=== PATIENT | male | born 1955 | race Two or more races ===

== ENCOUNTER 2017-01-18 19:59 | Inpatient (IN) | payer OTHER ==
[2017-01-18 20:25] VITALS: BMI 23.9
--- NOTE | 2017-01-18 20:50 | HP ---
CIWA Score - CIWA Score Nausea/Vomitin-Mild Nausea/No Vomiting Muscle Tremors: 4-Moderate,w/Arms Extend Anxiety: 4-Mod. Anxious/Guarded Agitation: 4-Moderately Restless Paroxysmal Sweats: 1-Minimal Palms Moist Orientation: 1-Uncertain about Date Tacttile Disturbances: 1-Very Mild Itch/Numbness Auditory Disturbances: 0-None Visual Disturbances: 0-None Headache: 2-Mild CIWA-Ar Total Score: 18 Admission ROS BHS - HPI Chief Complaint: C/O ALCOHOLISM. SEEKING DETOX TXMENT. Allergies/Adverse Reactions: Allergies Allergy/AdvReac Type Severity Reaction Status Date / Time No Known Allergies Allergy Verified 01/18/17 20:45 History of Present Illness: 61 Y.O. MALE WITH ALCOHOLISM ADMITTED FOR DETOX. CLIENT DENIES RECENT DETOX. SELF REFERRED. REPORTS LONGEST CLEAN TIME 10 YEARS. Exam Limitations: No Limitations - Ebola screening Have you traveled outside of the country in the last 21 days: No (N) Have you had contact with anyone from an Ebola affected area: No Have you been sick,other than usual withdrawal symptoms: No Do you have a fever: No - Review of Systems Constitutional: Chills, Loss of Appetite, Unintentional Wgt. Loss EENT: reports: No Symptoms Reported Respiratory: reports: No Symptoms reported Cardiac: reports: No Symptoms Reported GI: reports: Nausea, Poor Appetite, Poor Fluid Intake : reports: No Symptoms Reported Musculoskeletal: reports: Back Pain (CHRONIC) Integumentary: reports: No Symptoms Reported Neuro: reports: Tremors (ETOH RELATED) Endocrine: reports: No Symptoms Reported Hematology: reports: No Symptoms Reported Psychiatric: reports: Anxious, Depressed Other Systems: Reviewed and Negative Patient History - Patient Medical History Hx Anemia: No Hx Asthma: No Hx Chronic Obstructive Pulmonary Disease (COPD): No Hx Cancer: No Hx Cardiac Disorders: No Hx Congestive Heart Failure: No Hx Hypertension: Yes Hx Hypercholesterolemia: No Hx Pacemaker: Yes HX Cerebrovascular Accident: No Hx Seizures: No Hx Dementia: No Hx Diabetes: Yes (BORDERLINE) Hx Gastrointestinal Disorders: No Hx Liver Disease: No Hx Genitourinary Disorders: No Hx Sexually Transmitted Disorders: No Hx Renal Disease (ESRD): No Hx Thyroid Disease: No Hx Human Immunodeficiency Virus (HIV): No Hx Hepatitis C: No Hx Depression: Yes Hx Suicide Attempt: No Hx Bipolar Disorder: No Hx Schizophrenia: No Other Medical History: DENIES - Patient Surgical History Past Surgical History: No - PPD History Previous Implant?: Yes Documented Results: Negative w/o proof Implanted On Prior R Admission?: No PPD to be Administered?: Yes - Smoking Cessation Smoking history: Current every day smoker Have you smoked in the past 12 months: Yes Aproximately how many cigarettes per day: 10 Cigars Per Day: 0 Hx Chewing Tobacco Use: No Initiated information on smoking cessation: Yes 'Breaking Loose' booklet given: 01/18/17 - Substance & Tx. History Hx Alcohol Use: Yes Hx Substance Use: Yes Substance Use Type: Alcohol Hx Substance Use Treatment: Yes ([facility]) - Substances Abused VODKA Route: Oral Frequency: Daily Amount used: 1/2 PINT Age of first use: 20 Date of Last Use: 01/18/17 Family Disease History - Family Disease History Family Disease History: Other: Father (ALCOHOLISM) Admission Physical Exam S - Vital Signs Vital Signs: Vital Signs - 24 hr 01/18/17 20:20 Temperature 96.8 F L Pulse Rate 118 H Respiratory 20 Rate Blood Pressure 136/87 - Physical General Appearance: Yes: Appropriately Dressed, Intoxicated, Tremorous, Anxious HEENTM: Yes: EOMI, Normocephalic, Pharynx Normal Respiratory: Yes: Chest Non-Tender, Lungs Clear, Normal Breath Sounds, No Respiratory Distress, No Accessory Muscle Use Neck: Yes: No masses,lesions,Nodules, Supple, Trachea in good position Breast: Yes: Breast Exam Deferred Cardiology: Yes: Regular Rhythm, Regular Rate, S1, S2 Abdominal: Yes: Normal Bowel Sounds, Non Tender, Soft Genitourinary: Yes: Within Normal Limits Back: Yes: Normal Inspection Musculoskeletal: Yes: full range of Motion, Gait Steady, Back pain (C/O) Extremities: Yes: Normal Capillary Refill, Normal Range of Motion, Non-Tender, Tremors Neurological: Yes: Alert, Motor Strength 5/5 Integumentary: Yes: Dry, Warm, Other (FLUSHED) Lymphatic: Yes: Within Normal Limits - Diagnostic (1) HTN (hypertension) Current Visit: Yes Status: Chronic Qualifiers: Hypertension type: essential hypertension Qualified Code(s): I10 - Essential (primary) hypertension (2) HLD (hyperlipidemia) Current Visit: Yes Status: Chronic Qualifiers: Hyperlipidemia type: unspecified Qualified Code(s): E78.5 - Hyperlipidemia, unspecified (3) Nicotine dependence Current Visit: Yes Status: Chronic Qualifiers: Nicotine product type: cigarettes Substance use status: uncomplicated Qualified Code(s): F17.210 - Nicotine dependence, cigarettes, uncomplicated (4) Alcohol dependence with uncomplicated withdrawal Current Visit: Yes Status: Chronic Cleared for Admission [facility] - Detox or Rehab [facility] Level of Care: Medically Managed Detox Regimen/Protocol: Librium S Breath Alcohol Content Breath Alcohol Content: 0.291 Urine Drug Screen - Results Drug Screen Negative: No Urine Drug Screen Results: MET-Methamphetamine
[2017-01-18] MEDS ORDERED: MENTHOL/PHENOL 1 EACH UD MM PRN (21:02)
[2017-01-18] MEDS ORDERED: MAGNESIUM HYDROX 2400MG/30ML ORAL SUSPENSION 30 ML CUP PO PRN (21:02)
[2017-01-18] MEDS ORDERED: P-EPHED 60MG/TRIPROLIDI 2.5MG TABLET PO PRN (21:02)
[2017-01-18] MEDS ORDERED: MAGNESIUM CITRATE 300 ML BOTTLE PO PRN (21:02)
[2017-01-18] MEDS ORDERED: MAG HYDROX/AL HYDROX/SIMETH 30 ML UNIT-DOSE CUP PO PRN (21:02)
[2017-01-18] MEDS ORDERED: NICOTINE POLACRILEX 2 MG GUM BUC PRN (21:02)
[2017-01-18] MEDS ORDERED: hydrOXYzine PAMOATE 50 MG CAPSULE (FP) PO PRN (21:02)
[2017-01-18] MEDS ORDERED: guaiFENesin/D-METHORPHAN HB 10 ML UNIT-DOSE CUPS PO PRN (21:02)
[2017-01-18] MEDS: METOPROLOL TARTRATE 25 MG TABLET (FP) PO SCH (23:05)
[2017-01-18] MEDS: THIAMINE HCL 100 MG TABLET (FP) PO SCH (23:06)
[2017-01-18] MEDS: chlordiazePOXIDE HCL 25 MG CAPSULE PO SCH (23:06)
[2017-01-18] MEDS: NICOTINE 14 MG/24 HOURS TOPICAL PATCH TD SCH (23:07)
[2017-01-19] MEDS: chlordiazePOXIDE HCL 25 MG CAPSULE PO PRN ×2 (03:12→13:53)
[2017-01-19] MEDS: chlordiazePOXIDE HCL 25 MG CAPSULE PO SCH ×4 (05:37→22:26)
[2017-01-19 10:16] LABS: MCH 30.9 pg (25.7-33.7); MCHC 33.9 g/dl (32.0-35.9); MEAN CELL VOLUME 91.2 fl (80-96); MEAN PLT VOLUME 7.6 fl (7.5-11.1); PLATELET COUNT 124 K/MM3 (134-434); RDW 15.8 % (11.9-15.9); WHITE BLOOD COUNT 3.8 K/mm3 (4.0-10.0)
[2017-01-19] MEDS: PRENATAL VITAMINS W/ FOLIC ACID TABLET (FP) PO SCH (10:17)
[2017-01-19] MEDS: METOPROLOL TARTRATE 25 MG TABLET (FP) PO SCH (10:17)
[2017-01-19 10:19] LABS: URINE APPEARANCE CLEAR; URINE BILIRUBIN NEGATIVE (NEGATIVE); URINE BLOOD NEGATIVE (NEGATIVE); URINE COLOR LTYELLOW; URINE GLUCOSE (UA) NEGATIVE (NEGATIVE); URINE KETONE NEGATIVE (NEGATIVE); URINE LEUK ESTERASE NEGATIVE (NEGATIVE); URINE NITRITE NEGATIVE (NEGATIVE); URINE PROTEIN NEGATIVE (NEGATIVE); URINE UROBILINOGEN NEGATIVE E.U./dl (0.2-1.0)
[2017-01-19] MEDS: NICOTINE 14 MG/24 HOURS TOPICAL PATCH TD SCH (10:19)
[2017-01-19 10:40] LABS: ALBUMIN 3.8 g/dl (3.4-5.0); ALK PHOS 73 U/L (45-117); ANION GAP 15 (8-16); BILIRUBIN,TOTAL 1.3 mg/dL (0.2-1.0); CALCIUM 9.1 mg/dL (8.5-10.1); CO2 28 mmol/L (21-32); CREATININE 0.8 mg/dL (0.7-1.3); GLUCOSE,RANDOM 102 mg/dL (74-106); SGOT/AST 152 U/L (15-37); SGPT/ALT 97 U/L (12-78); TOT PROT 7.1 g/dl (6.4-8.2)
[2017-01-19 10:59] LABS: HIV 1 & 2 AB NEGATIVE; HIV 1 AGp24 NEGATIVE
--- NOTE | 2017-01-19 11:14 | CONSULT ---
[facility] Psychiatric Consult - Data Date of interview: 01/19/17 Admission source: [facility] Identifying data: This is 61 years old male with no psychiatric hospitalization history intoxiocated with: ASlcohol and Nicoptine Substance Abuse History: - Smoking Cessation. Smoking history: Current every day smoker. Have you smoked in the past 12 months: Yes. Aproximately how many cigarettes per day: 10. Cigars Per Day: 0. Hx Chewing Tobacco Use: No. Initiated information on smoking cessation: Yes. 'Breaking Loose' booklet given : 01/18/17. - Substance & Tx. History. Hx Alcohol Use: Yes. Hx Substance Use : Yes. Substance Use Type: Alcohol. Hx Substance Use Treatment: Yes ([facility] - Substances Abused. VODKA. Route: Oral. Frequency: Daily. Amount used: 1 /2 PINT. Age of first use: 20. Date of Last Use: 01/18/17 Medical History: Hyperlip[idemia, HTN Psychiatric History: Patient reports history of anxiety, reports no medications taking prior to admission Physical/Sexual Abuse/Trauma History: Denies Additional Comment: Observation. Detox Unit Care Protocol Mental Status Exam - Mental Status Exam Alert and Oriented to: Person Cognitive Function: Fair Patient Appearance: Unkempt Mood: Sad Affect: Flat Patient Behavior: Sedated Speech Pattern: Delayed Voice Loudness: Mildly Soft/Quiet Thought Process: Circumstantial Thought Disorder: Being Controlled Hallucinations: Denies Suicidal Ideation: Denies Homicidal Ideation: Denies Insight/Judgement: Fair Sleep: Difficulty falling asleep Appetite: Weight loss Muscle strength/Tone: Normal Gait/Station: Shuffling Additional Comments: Observation. Detox Unit Care Protocol Psychiatric Findings - Problem List ([place] 1, 2,3) (1) Alcohol dependence with uncomplicated withdrawal Current Visit: Yes Status: Chronic (2) Nicotine dependence Current Visit: Yes Status: Chronic Qualifiers: Nicotine product type: cigarettes Substance use status: uncomplicated Qualified Code(s): F17.210 - Nicotine dependence, cigarettes, uncomplicated (3) Drug-induced mood disorder Current Visit: Yes Status: Suspected - Initial Treatment Plan Initial Treatment Plan: Observation. Detox Unit Care Protocol
--- NOTE | 2017-01-19 13:39 | PN ---
S CIWA - CIWA Score Nausea/Vomitin Muscle Tremors: 4-Moderate,w/Arms Extend Anxiety: 4-Mod. Anxious/Guarded Agitation: 3 Paroxysmal Sweats: 3 Orientation: 0-Oriented Tacttile Disturbances: 1-Very Mild Itch/Numbness Auditory Disturbances: 0-None Visual Disturbances: 0-None Headache: 0-None Present CIWA-Ar Total Score: 17 BHS Progress Note (SOAP) Subjective: Sweating,interrupted sleep,restless,tremors,anxiety Objective: 01/19/17 13:38 Vital Signs - 8 hr 01/19/17 01/19/17 06:24 09:46 Temperature 98.7 F 97.6 F Pulse Rate 70 69 Respiratory 18 18 Rate Blood Pressure 135/91 153/102 Laboratory Tests 01/19/17 01/19/17 01/19/17 07:00 07:00 07:00 WBC 3.8 L RBC 4.76 Hgb 14.7 Hct 43.4 MCV 91.2 MCHC 33.9 RDW 15.8 Plt Count 124 L MPV 7.6 Sodium 142 Potassium 3.5 Chloride 99 Carbon Dioxide 28 Anion Gap 15 BUN 3 L Creatinine 0.8 Creat Clearance w eGFR > 60 Random Glucose 102 Calcium 9.1 Total Bilirubin 1.3 H AST 152 H ALT 97 H Alkaline Phosphatase 73 Total Protein 7.1 Albumin 3.8 Urine Color Urine Appearance Urine pH Urine Protein Urine Glucose (UA) Urine Ketones Urine Blood Urine Nitrite Urine Bilirubin Urine Urobilinogen Ur Leukocyte Esterase RPR Titer Nonreactive HIV 1&2 Antibody Screen HIV P24 Antigen 01/19/17 01/19/17 07:00 08:00 WBC RBC Hgb Hct MCV MCHC RDW Plt Count MPV Sodium Potassium Chloride Carbon Dioxide Anion Gap BUN Creatinine Creat Clearance w eGFR Random Glucose Calcium Total Bilirubin AST ALT Alkaline Phosphatase Total Protein Albumin Urine Color Ltyellow Urine Appearance Clear Urine pH 7.0 Urine Protein Negative Urine Glucose (UA) Negative Urine Ketones Negative Urine Blood Negative Urine Nitrite Negative Urine Bilirubin Negative Urine Urobilinogen Negative Ur Leukocyte Esterase Negative RPR Titer HIV 1&2 Antibody Screen Negative HIV P24 Antigen Negative labs noted Assessment: 01/19/17 13:39 Withdrawal sx. Plan: Continue detox
[2017-01-19] MEDS: amLODIPine BESYLATE 5 MG TABLET (FP) PO SCH ×2 (13:51→22:26)
--- NOTE | 2017-01-19 14:23 | EKG ---
Test Reason : Blood Pressure : / mmHG Vent. Rate : 096 BPM Atrial Rate : 096 BPM P-R Int : 186 ms QRS Dur : 100 ms QT Int : 354 ms P-R-T Axes : 047 010 021 degrees QTc Int : 447 ms NORMAL SINUS RHYTHM POSSIBLE LEFT ATRIAL ENLARGEMENT POSSIBLE ANTERIOR INFARCT , AGE UNDETERMINED ABNORMAL ECG NO PREVIOUS ECGS AVAILABLE Confirmed by MIRIAM KNIGHT, YANY ([id number]) on 01/19/2017 2:23:00 PM Referred By: Justice Correa Confirmed By:YANY PINEDA MD
--- NOTE | 2017-01-19 14:23 | EKG ---
Test Reason : Blood Pressure : / mmHG Vent. Rate : 061 BPM Atrial Rate : 061 BPM P-R Int : 184 ms QRS Dur : 108 ms QT Int : 424 ms P-R-T Axes : 044 014 019 degrees QTc Int : 426 ms NORMAL SINUS RHYTHM INCOMPLETE LEFT BUNDLE BRANCH BLOCK BORDERLINE ECG WHEN COMPARED WITH ECG OF 18-JAN-2017 20:54, VENT. RATE HAS DECREASED BY 35 BPM T WAVE VARIATION Confirmed by MIRIAM KNIGHT, YANY ([id number]) on 01/19/2017 2:22:48 PM Referred By: Justice Correa Confirmed By:YANY PINEDA MD
[2017-01-19] MEDS: THIAMINE HCL 100 MG TABLET (FP) PO SCH (22:26)
[2017-01-20] MEDS: chlordiazePOXIDE HCL 25 MG CAPSULE PO SCH ×3 (05:05→17:02)
[2017-01-20] MEDS: LOPERAMIDE HCL 2 MG CAPSULE PO PRN ×2 (10:09→17:02)
[2017-01-20] MEDS: PRENATAL VITAMINS W/ FOLIC ACID TABLET (FP) PO SCH (10:09)
[2017-01-20] MEDS: METOPROLOL TARTRATE 25 MG TABLET (FP) PO SCH (10:09)
[2017-01-20] MEDS: amLODIPine BESYLATE 5 MG TABLET (FP) PO SCH ×2 (10:09→22:06)
[2017-01-20] MEDS: NICOTINE 14 MG/24 HOURS TOPICAL PATCH TD SCH (10:12)
--- NOTE | 2017-01-20 14:54 | PN ---
S CIWA - CIWA Score Nausea/Vomitin-No Nausea/No Vomiting Muscle Tremors: 4-Moderate,w/Arms Extend Anxiety: 4-Mod. Anxious/Guarded Agitation: 3 Paroxysmal Sweats: 3 Orientation: 0-Oriented Tacttile Disturbances: 0-None Auditory Disturbances: 0-None Visual Disturbances: 0-None Headache: 0-None Present CIWA-Ar Total Score: 14 BHS Progress Note (SOAP) Subjective: Anxiety,tremors,sweating,interrupted sleep,restless Objective: 01/20/17 14:52 Vital Signs - 8 hr 01/20/17 01/20/17 09:16 13:09 Temperature 97.9 F 97.6 F Pulse Rate 103 H 75 Respiratory 20 18 Rate Blood Pressure 105/82 112/76 Laboratory Tests 01/18/17 01/19/17 01/19/17 07:00 07:00 07:00 WBC 3.8 L RBC 4.76 Hgb 14.7 Hct 43.4 MCV 91.2 MCHC 33.9 RDW 15.8 Plt Count 124 L MPV 7.6 Sodium 142 Potassium 3.5 Chloride 99 Carbon Dioxide 28 Anion Gap 15 BUN 3 L Creatinine 0.8 Creat Clearance w eGFR > 60 Random Glucose 102 Calcium 9.1 Total Bilirubin 1.3 H AST 152 H ALT 97 H Alkaline Phosphatase 73 Total Protein 7.1 Albumin 3.8 Urine Color Urine Appearance Urine pH Ur Specific [place] Urine Protein Urine Glucose (UA) Urine Ketones Urine Blood Urine Nitrite Urine Bilirubin Urine Urobilinogen Ur Leukocyte Esterase RPR Titer Hepatitis C Antibody <0.1 HIV 1&2 Antibody Screen HIV P24 Antigen 01/19/17 01/19/17 01/19/17 07:00 07:00 08:00 WBC RBC Hgb Hct MCV MCHC RDW Plt Count MPV Sodium Potassium Chloride Carbon Dioxide Anion Gap BUN Creatinine Creat Clearance w eGFR Random Glucose Calcium Total Bilirubin AST ALT Alkaline Phosphatase Total Protein Albumin Urine Color Ltyellow Urine Appearance Clear Urine pH 7.0 Ur Specific [place] 1.015 Urine Protein Negative Urine Glucose (UA) Negative Urine Ketones Negative Urine Blood Negative Urine Nitrite Negative Urine Bilirubin Negative Urine Urobilinogen Negative Ur Leukocyte Esterase Negative RPR Titer Nonreactive Hepatitis C Antibody HIV 1&2 Antibody Screen Negative HIV P24 Antigen Negative labs noted Assessment: 01/20/17 14:53 withdrawal sx. Plan: continue detox
[2017-01-20] MEDS: diphenhydrAMINE HCL 50 MG CAPSULE PO PRN (22:06)
[2017-01-20] MEDS: chlordiazePOXIDE 5 MG CAPSULE PO SCH (22:06)
[2017-01-20] MEDS: THIAMINE HCL 100 MG TABLET (FP) PO SCH (22:06)
[2017-01-21] MEDS: chlordiazePOXIDE 5 MG CAPSULE PO SCH ×3 (05:38→16:55)
[2017-01-21] MEDS: ACETAMINOPHEN 325 MG TABLET (FP) PO PRN (05:40)
[2017-01-21] MEDS: METOPROLOL TARTRATE 25 MG TABLET (FP) PO SCH (10:03)
[2017-01-21] MEDS: amLODIPine BESYLATE 5 MG TABLET (FP) PO SCH ×2 (10:04→22:06)
[2017-01-21] MEDS: PRENATAL VITAMINS W/ FOLIC ACID TABLET (FP) PO SCH (10:04)
[2017-01-21] MEDS: NICOTINE 14 MG/24 HOURS TOPICAL PATCH TD SCH (10:06)
--- NOTE | 2017-01-21 11:31 | PN ---
BHS Progress Note (SOAP) Subjective: Tremors only Detox Symptom reported by patient today. Objective: PT. A & O X 3, OBSERVED AMBULATING ON UNIT. NO ACUTE DISTRESS. PT. DENIES CHEST PAIN. 01/21/17 11:29 Vital Signs Temperature 97.0 F L 01/21/17 09:34 Pulse Rate 70 01/21/17 09:34 Respiratory Rate 18 01/21/17 09:34 Blood Pressure 111/80 01/21/17 09:34 O2 Sat by Pulse Oximetry (%) Laboratory Tests 01/18/17 01/19/17 01/19/17 07:00 07:00 07:00 WBC 3.8 L RBC 4.76 Hgb 14.7 Hct 43.4 MCV 91.2 MCHC 33.9 RDW 15.8 Plt Count 124 L MPV 7.6 Sodium 142 Potassium 3.5 Chloride 99 Carbon Dioxide 28 Anion Gap 15 BUN 3 L Creatinine 0.8 Creat Clearance w eGFR > 60 Random Glucose 102 Calcium 9.1 Total Bilirubin 1.3 H AST 152 H ALT 97 H Alkaline Phosphatase 73 Total Protein 7.1 Albumin 3.8 Urine Color Urine Appearance Urine pH Ur Specific [place] Urine Protein Urine Glucose (UA) Urine Ketones Urine Blood Urine Nitrite Urine Bilirubin Urine Urobilinogen Ur Leukocyte Esterase RPR Titer Hepatitis C Antibody <0.1 HIV 1&2 Antibody Screen HIV P24 Antigen 01/19/17 01/19/17 01/19/17 07:00 07:00 08:00 WBC RBC Hgb Hct MCV MCHC RDW Plt Count MPV Sodium Potassium Chloride Carbon Dioxide Anion Gap BUN Creatinine Creat Clearance w eGFR Random Glucose Calcium Total Bilirubin AST ALT Alkaline Phosphatase Total Protein Albumin Urine Color Ltyellow Urine Appearance Clear Urine pH 7.0 Ur Specific [place] 1.015 Urine Protein Negative Urine Glucose (UA) Negative Urine Ketones Negative Urine Blood Negative Urine Nitrite Negative Urine Bilirubin Negative Urine Urobilinogen Negative Ur Leukocyte Esterase Negative RPR Titer Nonreactive Hepatitis C Antibody HIV 1&2 Antibody Screen Negative HIV P24 Antigen Negative LABS NOTED. Assessment: 01/21/17 11:29 WITHDRAWAL SYMPTOMS. Plan: CONTINUE DETOX. ADVISED PATIENT TO FOLLOW-UP WITH RADIO PROGRAM CHECKER AFTER DISCHARGE FROM DETOX FOR GENERAL MEDICAL ASSESSMENT AND FOR LOW ADMISSION PLATELET LEVELS AND ELEVATED LIVER ENZYMES (AST AND ALT).
[2017-01-21] MEDS: THIAMINE HCL 100 MG TABLET (FP) PO SCH (22:06)
[2017-01-21] MEDS: diphenhydrAMINE HCL 50 MG CAPSULE PO PRN (22:06)
[2017-01-21] MEDS: chlordiazePOXIDE HCL 10 MG CAPSULE PO SCH (22:06)
[2017-01-22] MEDS: chlordiazePOXIDE HCL 10 MG CAPSULE PO SCH (05:23)
[2017-01-22] MEDS: ACETAMINOPHEN 325 MG TABLET (FP) PO PRN (05:24)
[2017-01-22 06:32] VITALS: BP 137/99; PULSE 77; TEMP 97.1
--- NOTE | 2017-01-22 12:57 | DS ---
[facility] Detox Discharge Summary Admission Date: 01/18/17 Discharge Date: 01/22/17 - History Present History: Alcohol Dependence Additional Comments: ADVISED PATIENT TO FOLLOW-UP WITH HAMMERER HELPER AFTER DISCHARGE FROM DETOX FOR GENERAL MEDICAL ASSESSMENT. Pertinent Past History: HTN, Hyperlipidemia, Borderline DM, Depression, Pacemaker. - Physical Exam Results Vital Signs: Vital Signs Temperature 97.1 F L 01/22/17 06:32 Pulse Rate 77 01/22/17 06:32 Respiratory Rate 18 01/22/17 06:32 Blood Pressure 137/99 01/22/17 06:32 O2 Sat by Pulse Oximetry (%) Pertinent Admission Physical Exam Findings: WITHDRAWAL SYMPTOMS. Laboratory Tests 01/18/17 01/19/17 01/19/17 07:00 07:00 07:00 WBC 3.8 L RBC 4.76 Hgb 14.7 Hct 43.4 MCV 91.2 MCHC 33.9 RDW 15.8 Plt Count 124 L MPV 7.6 Sodium 142 Potassium 3.5 Chloride 99 Carbon Dioxide 28 Anion Gap 15 BUN 3 L Creatinine 0.8 Creat Clearance w eGFR > 60 Random Glucose 102 Calcium 9.1 Total Bilirubin 1.3 H AST 152 H ALT 97 H Alkaline Phosphatase 73 Total Protein 7.1 Albumin 3.8 Urine Color Urine Appearance Urine pH Ur Specific [place] Urine Protein Urine Glucose (UA) Urine Ketones Urine Blood Urine Nitrite Urine Bilirubin Urine Urobilinogen Ur Leukocyte Esterase RPR Titer Hepatitis C Antibody <0.1 HIV 1&2 Antibody Screen HIV P24 Antigen 01/19/17 01/19/17 01/19/17 07:00 07:00 08:00 WBC RBC Hgb Hct MCV MCHC RDW Plt Count MPV Sodium Potassium Chloride Carbon Dioxide Anion Gap BUN Creatinine Creat Clearance w eGFR Random Glucose Calcium Total Bilirubin AST ALT Alkaline Phosphatase Total Protein Albumin Urine Color Ltyellow Urine Appearance Clear Urine pH 7.0 Ur Specific [place] 1.015 Urine Protein Negative Urine Glucose (UA) Negative Urine Ketones Negative Urine Blood Negative Urine Nitrite Negative Urine Bilirubin Negative Urine Urobilinogen Negative Ur Leukocyte Esterase Negative RPR Titer Nonreactive Hepatitis C Antibody HIV 1&2 Antibody Screen Negative HIV P24 Antigen Negative LABS NOTED. - Treatment Hospital Course: Detox Protocol Followed, Detoxed Safely, Responded well, Discharged Condition Good Patient has Accepted a Rehab Referral to: PATIENT ELECTING TO GO HOME. 12-STEP / AA OUTPATIENT RPROGRAMS RECOMMENDED. - Medication Discharge Medications: Ambulatory Orders Metoprolol Tartrate 75 mg PO DAILY 01/18/17 - Diagnosis (1) Alcohol dependence with uncomplicated withdrawal Status: Acute (2) HLD (hyperlipidemia) Status: Chronic Qualifiers: Hyperlipidemia type: unspecified Qualified Code(s): E78.5 - Hyperlipidemia, unspecified (3) HTN (hypertension) Status: Chronic Qualifiers: Hypertension type: essential hypertension Qualified Code(s): I10 - Essential (primary) hypertension (4) Nicotine dependence Status: Chronic Qualifiers: Nicotine product type: cigarettes Substance use status: uncomplicated Qualified Code(s): F17.210 - Nicotine dependence, cigarettes, uncomplicated (5) Drug-induced mood disorder Status: Suspected - AMA Did Patient Leave Against Medical Advice: No
== END 2017-01-22 07:07 | disposition home or self-care (01) | DRG 775 ==
LOC: YASAS 19:59 → Y3N 21:01
PROVIDERS: ADMIT Internal Medicine; ATTEND Internal Medicine
PROC: HZ2ZZZZ Detoxification Services for Substance Abuse Treatment (ICD-10-PCS; principal; 2017-01-18)
DX: F10.230 Alcohol dependence with withdrawal, uncomplicated (principal); F17.210 Nicotine dependence, cigarettes, uncomplicated; F19.24 Other psychoactive substance dependence with psychoactive substance-induced mood disorder; I10 Essential (primary) hypertension; E78.5 Hyperlipidemia, unspecified; R73.03 Prediabetes
CPT/HCPCS: 36415; 80053; 81003; 85027; 86593; 86803; 87389; 93005; 93010

== ENCOUNTER 2024-12-26 19:50 | Emergency (ER) | payer OTHER ==
[2024-12-26 20:08] VITALS: TEMP 98.2; BMI 24.8
[2024-12-26 20:43] LABS: EOSINOPHIL % 0.2 % (0.8-7.0); EOSINOPHILS # 0.01 x10^3/uL (0.04-0.54); HEMOGLOBIN 14.3 g/dL (13.7-17.5)
[2024-12-26 20:45] LABS: ABSOLUTE IMMATURE GRANULOCYTES 0.02 x10^3/uL (0.0-0.031); BASOPHILS # 0.04 x10^3/uL (0.01-0.08); HEMATOCRIT 43.4 % (40.1-51.0); MCHC 32.9 g/dl (32.3-36.5); MEAN CELL VOLUME 83.8 fl (79.0-92.2); MEAN PLT VOLUME 10.1 fl (9.4-12.4); MONOCYTE # 0.55 x10^3/uL (0.30-0.82); MONOCYTE % 10.1 % (5.3-12.2); PLATELET COUNT 117 x10^3/uL (163-337); RDW 15.2 % (12.2-16.4)
[2024-12-26 20:49] LABS: VENOUS BASE EXCESS 2.1 mmol/L (-2-2); VENOUS O2 SATURATION 63.6 % (70-80); VENOUS PCO2 41.3 mmHg (38-52); VENOUS PH 7.427 (7.310-7.410)
[2024-12-26 20:55] LABS: PH,URINE 6.5 (5.0-8.0); URINE APPEARANCE CLEAR; URINE BILIRUBIN NEGATIVE (NEGATIVE); URINE COLOR YELLOW; URINE GLUCOSE (UA) NEGATIVE (NEGATIVE); URINE KETONE NEGATIVE (NEGATIVE); URINE LEUK ESTERASE NEGATIVE (NEGATIVE); URINE NITRITE NEGATIVE (NEGATIVE); URINE PROTEIN NEGATIVE (NEGATIVE); URINE UROBILINOGEN 0.2 mg/dL (0.2-1.0)
[2024-12-26 21:18] LABS: CHLORIDE 101 mmol/L (98-107); SODIUM 134 mmol/L (136-145)
[2024-12-26 21:19] LABS: POTASSIUM 8.7 mmol/L (3.5-5.1)
[2024-12-26 21:25] LABS: BILIRUBIN,TOTAL 0.9 mg/dL (0.2-1)
[2024-12-26 21:27] LABS: ALBUMIN 3.2 g/dl (3.4-5.0); ALK PHOS 128 U/L (45-117)
[2024-12-26 21:28] LABS: ANION GAP 7 mmol/L (4-13); BLOOD UREA NITROGEN 18.3 mg/dL (7-18); CO2 26 mmol/L (21-32); GLUCOSE,RANDOM 114 mg/dL (74-106); MAGNESIUM 2.1 mg/dL (1.8-2.4)
[2024-12-26 21:31] LABS: CREATININE 1.4 mg/dL (0.55-1.3); SGOT/AST 93 U/L (15-37)
[2024-12-26 21:32] LABS: TOT PROT 7.3 g/dl (6.4-8.2)
[2024-12-26 21:33] LABS: COCAINE, UR NEGATIVE (NEGATIVE); URINE AMPHETAMINES NEGATIVE (NEGATIVE); URINE BARBITURATES NEGATIVE (NEGATIVE); URINE BENZODIAZEPINES NEGATIVE (NEGATIVE)
[2024-12-26 21:33] LABS: SGPT/ALT 49 U/L (13-61)
[2024-12-26 21:34] LABS: METHADONE, UR NEGATIVE (NEGATIVE); OPIATES, URI NEGATIVE (NEGATIVE); PHENCYCLIDINE,URINE NEGATIVE (NEGATIVE)
[2024-12-26] MEDS ORDERED: HALOPERIDOL LACTATE 5 MG/ML ONE (21:51)
[2024-12-26] MEDS ORDERED: MIDAZOLAM HCL 5 MG/1 ML Single Dose Vial ONE (21:51)
[2024-12-26] MEDS: HALOPERIDOL LACTATE 5 MG/ML IM ONE (21:58)
[2024-12-26] MEDS: MIDAZOLAM HCL 5 MG/1 ML Single Dose Vial IVPUSH ONE (21:58)
[2024-12-26 23:01] VITALS: RESP 22
[2024-12-27 01:25] LABS: CALCIUM 8.1 mg/dL (8.5-10.1)
[2024-12-27 01:26] LABS: BLOOD UREA NITROGEN 17.3 mg/dL (7-18)
[2024-12-27 01:29] LABS: CREATININE 1.1 mg/dL (0.55-1.3)
[2024-12-27 04:19] VITALS: BP 128/76; PULSE 90
== END 2024-12-27 05:39 | disposition home or self-care (01) ==
LOC: JER 19:50
PROC: 3E033GC Introduction of Other Therapeutic Substance into Peripheral Vein, Percutaneous Approach (ICD-10-PCS; principal; 2024-12-26)
PROC: 3E033GC Introduction of Other Therapeutic Substance into Peripheral Vein, Percutaneous Approach (ICD-10-PCS; 2024-12-26)
PROC: 3E023GC Introduction of Other Therapeutic Substance into Muscle, Percutaneous Approach (ICD-10-PCS; 2024-12-26)
DX: F10.129 Alcohol abuse with intoxication, unspecified (principal); Y90.8 Blood alcohol level of 240 mg/100 ml or more; R41.82 Altered mental status, unspecified; R45.1 Restlessness and agitation; R94.31 Abnormal electrocardiogram [ECG] [EKG]
CPT/HCPCS: 0241U-QW; 36415; 71045-TC-FY; 80048; 80053; 80307; 81003; 82803; 83735; 84484; 85025; 87086; 93005; 93010; 99285-25